=== PATIENT | female | born 1955 | race Hispanic/Latino ===

== ENCOUNTER 2019-07-25 07:28 | Emergency (ER) | payer MEDICARE ==
[~2019-07-25] VITALS: Ht 160 cm; Wt 65.8 kg
--- OUTSIDE RECORDS SUMMARY | 2019-07-25 07:39 | XMS REPORT ---
[facility] Address Unknown Phone Unavailable Care Team Providers Care Still Operator Name Role Phone Unavailable Unavailable Problems This patient has no known problems. Allergies, Adverse Reactions, Alerts This patient has no known allergies or adverse reactions. Medications This patient has no known medications. Encounters Start Date/Time End Date/Time Encounter Type Admission Type Attending [facility] Care Department Encounter ID 2017-11-25 17:09:15 2017-11-25 17:09:15 Outpatient [facility] [id number] 2017-08-15 00:00:00 2017-08-15 00:00:00 Outpatient [facility] [id number] 2017-07-28 00:00:00 2017-07-28 00:00:00 Outpatient [facility] [id number] 2017-07-11 00:00:00 2017-07-11 00:00:00 Outpatient [facility] [id number] 2017-07-01 00:00:00 2017-07-01 00:00:00 Outpatient [facility] [id number] 2017-06-30 11:21:14 2017-06-30 11:21:14 Outpatient [facility] [id number] 2017-06-30 09:48:00 2017-06-30 09:48:00 Outpatient [facility] [id number] 2017-06-30 00:00:00 2017-06-30 00:00:00 Outpatient [facility] [id number] 2017-06-19 09:37:11 2017-06-19 09:37:11 Outpatient [facility] [id number] 2017-06-18 10:48:46 2017-06-18 10:48:46 Outpatient [facility] [id number] 2017-06-04 16:49:19 2017-06-04 16:49:19 Outpatient [facility] [id number] 2017-06-04 15:27:43 2017-06-04 15:27:43 Outpatient [facility] [id number] 2017-06-04 10:09:46 2017-06-04 10:09:46 Outpatient [facility] [id number] 2017-06-02 00:00:00 2017-06-02 00:00:00 Outpatient [facility] [id number] 2017-05-21 10:11:05 2017-05-21 10:11:05 Outpatient [facility] [id number] 2017-05-14 12:56:58 2017-05-14 12:56:58 Outpatient [facility] [id number] 2017-05-13 15:09:42 2017-05-13 15:09:42 Outpatient [facility] [id number] 2017-05-06 00:00:00 2017-05-06 00:00:00 Outpatient [facility] [id number] 2017-05-05 09:47:35 2017-05-05 09:47:35 Outpatient [facility] [id number] 2017-05-05 08:42:01 2017-05-05 08:42:01 Outpatient [facility] [id number] 2017-03-25 00:00:00 2017-03-25 00:00:00 Outpatient [facility] [id number]
[2019-07-25] MEDS ORDERED: FAMOTIDINE 20 MG/2 ML VIAL IV STA (07:47)
[2019-07-25] MEDS ORDERED: LABETALOL HCL 5 MG/ML 20ML VIAL IV STA (07:47)
[2019-07-25 08:06] LABS: BASOPHILS % 0.4 % (0.0-1.0); BILIRUBIN,URINE NEGATIVE (NEGATIVE); CLARITY,URINE CLEAR (CLEAR); COLOR,URINE YELLOW (YELLOW); EOSINOPHILS # (AUTO) 0.1 (0.0-0.4); EOSINOPHILS % 1.4 % (0.0-6.0); HEMATOCRIT 36.5 % (34.2-44.1); HEMOGLOBIN 12.1 g/dL (12.0-16.0); KETONES,URINE NEGATIVE (NEGATIVE); LEUKOCYTE ESTERASE ,URINE NEGATIVE (NEGATIVE); LYMPHOCYTES # (AUTO) 2.3 (1.0-3.2); LYMPHOCYTES % 29.5 % (18.0-39.1); MEAN CORPUSCULAR HEMOGLOBIN 29.4 pg (28-32); MEAN CORPUSCULAR HGB CONC 33.2 g/dL (31-35); MEAN CORPUSCULAR VOLUME 88.6 fL (81-99); MONOCYTES # (AUTO) 0.5 (0.2-0.8); MONOCYTES % 6.3 % (4.4-11.3); NEUTROPHILS # (AUTO) 4.9 (2.1-6.9); NEUTROPHILS % 62.1 % (38.7-80.0); NITRITE,URINE NEGATIVE (NEGATIVE); PLATELET COUNT 307 x10e3/uL (140-360); PROTEIN,URINE DIPSTICK NEGATIVE (NEGATIVE); RED BLOOD COUNT 4.12 x10e6/uL (3.6-5.1); RED CELL DISTRIBUTION WIDTH 12.3 % (11.7-14.4); URINE UROBILINOGEN 0.2 mg/dL (0.2 - 1)
[2019-07-25] MEDS ORDERED: FLUZONE HI180 MCG/04 (08:13)
[2019-07-25] MEDS ORDERED: METFORMIN HCL1000 MG PO (08:13)
[2019-07-25] MEDS ORDERED: HYDROCHLOROTHIA25 MG PO (08:13)
[2019-07-25] MEDS ORDERED: LEVEMIR FL100 UNIT/1 (08:13)
[2019-07-25] MEDS ORDERED: LOSARTAN POTAS100 MG PO (08:13)
[2019-07-25] MEDS ORDERED: ASPIRIN EC81 MG PO (08:13)
[2019-07-25] MEDS ORDERED: ATORVASTATIN CA10 MG PO (08:13)
[2019-07-25 08:20] LABS: ALANINE AMINOTRANSFERASE 13 IU/L (0-55); ALBUMIN 4.2 g/dL (3.5-5.0); ALBUMIN/GLOBULIN RATIO 1.2 (0.8-2.0); ALKALINE PHOSPHATASE 61 IU/L (40-150); AMYLASE 29 U/L (25-125); ANION GAP 16.6 mmol/L (8-16); BLOOD UREA NITROGEN 17 mg/dL (7-26); BUN/CREATININE RATIO 19 (6-25); CALCIUM 9.9 mg/dL (8.4-10.2); CARBON DIOXIDE 25 mmol/L (22-29); CHLORIDE 103 mmol/L (98-107); CREATINE KINASE 56 IU/L (29-168); CREATININE, SERUM 0.89 mg/dL (0.57-1.11); EST GLOMERULAR FILTRATION RATE > 60 ML/MIN (60-); GLUCOSE 161 mg/dL (74-118); LIPASE 8 U/L (8-78); POTASSIUM 3.6 mmol/L (3.5-5.1); SODIUM 141 mmol/L (136-145)
[2019-07-25 08:26] LABS: BACTERIA,URINE RARE /HPF; EPITHELIAL CELLS,URINE RARE /LPF; TRANSITIONAL EPI CELLS,URINE RARE; WBC,URINE (MAN) 0-5 /HPF (0-5)
--- NOTE | 2019-07-25 08:45 | Diagnostic Imaging Report ---
Acute Abdominal Series CPT CODE: 71441 INDICATION: Hypertension, shortness of breath, abdominal pain. COMPARISON: None. FINDINGS: Single view of the chest shows no mass or infiltrate. Cardiomediastinal silhouette is normal. Supine and erect views of the abdomen show unremarkable bowel gas pattern. No dilated bowel loops. Moderate burden of stool throughout the colon. Cholecystectomy clips are present. No free air. No calcifications over the renal shadows or along the expected course of the ureters. Osseous structures and soft tissues are unremarkable. IMPRESSION: 1. Unremarkable bowel gas pattern. Moderate stool burden. 2. Clear lungs. Signed by: Dr. Tisha Lagos MD on 07/25/2019 8:42 AM
== END 2019-07-25 09:52 | disposition home or self-care (01) ==
LOC: ER 07:36
DX: R10.13 Epigastric pain (principal); R11.0 Nausea; K59.00 Constipation, unspecified; I10 Essential (primary) hypertension
CPT/HCPCS: 36415; 74022; 80053; 81001; 82150; 82550; 82553; 83690; 83880; 84484; 85025; 85379; 93005; 99284; J3490

== ENCOUNTER 2024-08-20 19:20 | Emergency (ER) | payer MEDICARE ==
[~2024-08-20] VITALS: Ht 152.4 cm; Wt 63.5 kg
[~2024-08-20 19:20] MED LIST: ASPIRIN EC81 MG PO; ATORVASTATIN CA10 MG PO; FLUZONE HI180 MCG/04; HYDROCHLOROTHIA25 MG PO; LEVEMIR FL100 UNIT/1; LOSARTAN POTAS100 MG PO; METFORMIN HCL1000 MG PO
[2024-08-20 21:25] VITALS: PULSE 66; RESP 19; TEMP 98.6
[2024-08-21] MEDS ORDERED: ULTRAM 50MG50 MG PO (00:01)
[2024-08-21] MEDS ORDERED: ONDANSETRON ODT4 MG PO (00:05)
[2024-08-21] MEDS ORDERED: KETOROLAC TROME10 MG PO (00:06)
[2024-08-21 02:31] VITALS: BP 180/77; PULSE 67; RESP 17; TEMP 98.5; O2SAT 100
== END 2024-08-21 00:05 | disposition home or self-care (01) ==
LOC: ER 19:35
DX: M54.2 Cervicalgia (principal); M54.6 Pain in thoracic spine; M54.50 Low back pain, unspecified; V43.52XA Car driver injured in collision with other type car in traffic accident, initial encounter; Y92.488 Other paved roadways as the place of occurrence of the external cause; I10 Essential (primary) hypertension; E11.9 Type 2 diabetes mellitus without complications; E78.5 Hyperlipidemia, unspecified; Z86.73 Personal history of transient ischemic attack (TIA), and cerebral infarction without residual deficits
CPT/HCPCS: 72040; 72070; 72100; 99283